=== PATIENT | male | born 1940 ===

== ENCOUNTER 2022-06-25 07:40 | Day surgery (SDC) | payer OTHER ==
[~2022-06-25 07:40] MED LIST: CARBIDOPA-LEVO1 EAC4; LOSARTAN POTAS100 MG; METFORMIN HCL500 M3
== END 2022-06-25 16:40 | disposition home or self-care (01) ==
LOC: CIR.AMB 07:40
PROVIDERS: ATTEND Colon & Rectal Surgery
DX: K64.8 Other hemorrhoids (principal); Z20.822 Contact with and (suspected) exposure to COVID-19; I10 Essential (primary) hypertension; G20 Parkinson's disease; E11.9 Type 2 diabetes mellitus without complications; Z79.84 Long term (current) use of oral hypoglycemic drugs